=== PATIENT | male | born 1985 | race Caucasian/White ===

== ENCOUNTER 2017-05-20 13:45 | Emergency (ER) | payer MEDICAID ==
[~2017-05-20] VITALS: Ht 177.8 cm; Wt 79.8 kg
[2017-05-20 13:47] VITALS: BP 127/82
[2017-05-20] MEDS ORDERED: BUPR-173 PO (14:07)
== END 2017-05-20 14:14 | disposition home or self-care (01) ==
LOC: ED 14:00
DX: F32.9 Major depressive disorder, single episode, unspecified (principal); Z76.0 Encounter for issue of repeat prescription; Z87.891 Personal history of nicotine dependence
CPT/HCPCS: 99283

== ENCOUNTER 2017-06-19 17:51 | Emergency (ER) | payer MEDICAID ==
[~2017-06-19] VITALS: Ht 177.8 cm; Wt 81.1 kg
[~2017-06-19 17:51] MED LIST: BUPR-173 PO
[2017-06-19 18:04] VITALS: BP 133/84
[2017-06-19] MEDS ORDERED: SERT25TA PO (18:23)
[2017-06-19] MEDS ORDERED: BUPR-173 PO (18:23)
[2017-06-19] MEDS ORDERED: MULT-516 PO (18:24)
== END 2017-06-19 18:41 | disposition home or self-care (01) ==
LOC: ED 18:16
DX: F32.9 Major depressive disorder, single episode, unspecified (principal); Z76.0 Encounter for issue of repeat prescription; F17.200 Nicotine dependence, unspecified, uncomplicated
CPT/HCPCS: 99283

== ENCOUNTER 2019-11-06 22:42 | Emergency (ER) | payer SELFPAY ==
[~2019-11-06] VITALS: Ht 177.8 cm; Wt 96.3 kg
[~2019-11-06 22:42] MED LIST changes: +MULT-516 PO; +SERT25TA PO
--- NOTE | 2019-11-06 23:34 | NUR ---
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
--- NOTE | 2019-11-06 23:40 | NUR ---
PT TO ED WITH LEFT LOWER DENTAL PAIN, REPORTS " I THINK MY WISDOM TOOTH IS IMPACTED" HX OF SAME. DENIES DIFFICULTY SWALLOWING, NO FACIAL SWELLING NOTED. PT CONNECTED TO MONITORING, CALL LIGHT WITHIN REACH, ALL SAFETY MEASURES IN PLACE.
--- NOTE | 2019-11-06 23:41 | NUR ---
PT REPORTS TAKING IBUPROPHEN X2 HRS AGO ALONG WITH NEURONTIN.
[2019-11-07] MEDS ORDERED: HYDROcodone/APAP 5/325 TABLET PO ONE
[2019-11-07] MEDS ORDERED: HYDROcodone/APAP 5/325 TABLET ONE (00:10)
[2019-11-07 00:19] VITALS: BP 121/75
--- NOTE | 2019-11-07 00:20 | NUR ---
Patient given discharge instructions and they have confirmed that they understand the instructions. Patient ambulatory with steady gait. STATES HE HAS A RIDE FROM A FRIEND. NAD, VSS. NO PT BELONGINGS LEFT IN ROOM AFTER DC.
== END 2019-11-07 00:20 | disposition home or self-care (01) ==
LOC: ED 11-07 00:05
DX: K08.89 Other specified disorders of teeth and supporting structures (principal)
CPT/HCPCS: 99283